=== PATIENT | female | born 1990 | race Caucasian/White ===

== ENCOUNTER → 2024-09-09 | Outpatient (CLI) | payer OTHER ==
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
== END | disposition home or self-care (01) ==
LOC: RADFLMAIN 13:05
PROVIDERS: ATTEND Orthopaedic Surgery Hand Surgery
DX: S63.599A Other specified sprain of unspecified wrist, initial encounter